=== PATIENT | male | born 1960 | race Caucasian/White ===

== ENCOUNTER 2022-05-03 02:18 | Inpatient (IN) | payer MEDICARE, SELFPAY ==
[2022-05-03 03:05] VITALS: BMI 33.4
[2022-05-03 03:17] VITALS: BP 118/78; PULSE 88; RESP 17; TEMP 36.6; O2SAT 93
[2022-05-03] MEDS: 0.9% Normal Saline 1,000 ML 125 ML IV ×3 (03:29→21:27)
--- NOTE | 2022-05-03 03:32 | HP.PCM_ITS ---
HPI - General General Date of Admission: 05/03/22 Date of Service: 05/03/22 Chief Complaint: Abdominal pain, N/V. HPI Narrative The patient is a 61 y/o M w/ PMHx: CKD stage III unclear subtype (baseline Cr 1.3-1.5 from prior labs reviewed in Clinisync), Anxiety and Depression, Gout, Chronic pain previously following with pain management who presented to the OSH ED [facility] on 05/03/22 with history of nausea, emesis, loose stools i nitially with mild abdominal distention with mainly abdominal soreness initially but upon ED presentation reporting mild epigastric discomfort prompting ED evaluation. Patient specifically reports that he had intractable ongoing persistent emesis from nearly 4:30 in the morning when it all started tube just prior to outside facility ED presentation at 9:30 PM and during this because of the severity of ongoing emesis he did have lightheadedness and dizziness but never suffered any syncopal events. Upon evaluation upon [facility] transition patient reports his pain is 6 out of 10 in severity and attributes this to having the NG tube unhooked. He notes that the pain significantly improved at the outside facility once they placed his NG tube. NG tube being hooked up during evaluation and he notes that even with this initial start he does have immediate improvement in his discomfort. Work-up in the OSH ED included: VS: HR 99, RR 18, 124/83, 94% on RA, T 36.9 Imaging: CT abdomen and pelvis with contrast within mid grade small bowel obstruction without definitive transition point however suspicious of the transition point in the right mid abdomen (Large volume air-fluid level in the stomach, air-fluid level of the proximal small bowel centrally measuring up to 4.2 cm in the mid small bowel which exhibits air-fluid levels also with a lesser degree of distention with no discrete transition point however suspicious for the right hemiabdomen, colon mostly decompressed) UA: elevated specific gravity 1.030, ketone 15 otherwise no obvious evidence of UTI CBC: WBC 15.3, hemoglobin 16.3, platelet 205 with increased neutrophils with left shift CMP: sodium 141, potassium 3.7, chloride 104, CO2 23, BUN/creatinine 25/1.40, glucose 151, AST/ALT 53/105, alk phos 73, total bili 0.6 Lipase: 39 Medications administered: Zofran 4 mg IV, reglan 10 mg IV, morphine 4 mg, 1L NS. Interventions: NGT requested to be placed prior to transfer with follow-up KUB for placement [facility] Medical History Anxiety and depression CKD (chronic kidney disease), stage III Gout History of chronic pain Home Medications ibuprofen 400 mg tablet 800 mg PO QHS PRN Pain 05/03/22 [History Last Taken 05/01/22] Allergy/AdvReac Type Severity Reaction Status Date / Time No Known Allergies Allergy Verified 05/03/22 03:13 Family History (Updated 05/03/22 @ 02:[address] Danna Keene MD) Mother Diabetes Father Diabetes Surgical History History of hip surgery History of total replacement of right shoulder joint Social History (Updated 05/03/22 @ 02:[address] Danna Keene MD) household members: spouse Smoking Status: Never smoker alcohol intake: never substance use type: does not use ROS ROS Narrative Admission Review of Systems: CONSTITUTIONAL: No weight loss, fever, chills, + weakness or fatigue. HEENT: Eyes: No visual loss, blurred vision, double vision or yellow sclerae. Ears, Nose, Throat: No hearing loss, sneezing, congestion, runny nose or sore throat. SKIN: No rash or itching, lesions, wounds. CARDIOVASCULAR: No chest pain, chest pressure or chest discomfort, palpitations, edema, orthopnea, syncopal events. RESPIRATORY: No shortness of breath, cough or sputum, wheezing, hemoptysis. GASTROINTESTINAL: + anorexia, nausea, vomiting, diarrhea, abdominal pain, No melena, BRBPR. GENITOURINARY: No dysuria, frequency, urgency or retention. NEUROLOGICAL: No headache, dizziness, syncope, paralysis, ataxia, numbness or tingling in the extremities, focal weakness, change in bowel or bladder control, seizure. MUSCULOSKELETAL: + muscle, back pain, joint pain or stiffness. HEMATOLOGIC: No anemia, bleeding or bruising. LYMPHATICS: No enlarged nodes. No history of splenectomy. PSYCHIATRIC: + history of depression or anxiety. ENDOCRINOLOGIC: No reports of sweating, cold or heat intolerance. No polyuria or polydipsia. ALLERGIES: No history of asthma, hives, eczema or rhinitis. Vital Signs Vital Signs Vital Signs: 05/03/22 03:17 Temperature 97.9 F Temperature Source Temporal Pulse Rate 88 Respiratory Rate 17 Blood Pressure 118/78 Blood Pressure Mean 91 Blood Pressure Source Monitor Blood Pressure Position Semi-Fowlers Blood Pressure Location Right Arm Pulse Ox 93 Oxygen Delivery Method Room Air Weight Weight: 246 lb 7.629 oz Body Mass Index (BMI) 33.4 Physical Exam Narrative Physical Examination: General: Awake, alert, oriented x 3 and cooperative, laying in the medical surgical bed, fatigued, currently notes pain 6 out of 10 but is improving already with NG tube set up to suction. Skin: Normal color, normal turgor, no icterus, no cyanosis. HEENT: AT/NC, EOMI, PERRLA, moderately dry MM, NG tube in place, no carotid bruits or JVD noted. Lungs: Mildly diminished at bases, proper effort no rales, ronchi or wheezing. Heart: Regular rate and rhythm; no gallop, rub audible. Abdomen: Soft, generalized discomfort with palpation, worse bilateral upper quadrant, does not appear markedly distended, significantly diminished bowel sounds more so in the bilateral upper quadrants, no obvious HSM. Extremities: No cyanosis, clubbing, or edema. Neurological: Patient awake, alert, oriented as noted, cognitive function intact; pupils equally reactive to light and accommodation, cranial nerves II- XII grossly normal, moving all 4 extremities, no focal deficits, strength moderately to severely global decrease secondary to acute presentation. Psychiatric: Affect appears fatigued, currently appears uncomfortable, no acute evidence of depressive or anxiety feelings. Assessment & Plan Assessment/Plan (1) SBO (small bowel obstruction): PLAN: Plan The patient is a 61 y/o M w/ PMHx: CKD stage III unclear subtype (baseline Cr 1.3-1.5 from prior labs reviewed in Clinisync), Anxiety and Depression, Gout, Chronic pain previously following with pain management who presented to the OS ED [facility] on 05/03/22 with history of nausea, emesis, loose stools initially with mild abdominal distention with mainly abdominal soreness initially with ongoing intractable emesis from 4:30 in the morning to 9:30 PM 05/02/2022 prompting outside facility evaluation with SBO noted on CT scan prompting transfer to [facility] on 05/03/22 for further evaluation. #1. Abdominal pain, nausea, emesis w/ SBO: CT abdomen and pelvis with contrast within mid grade small bowel obstruction without definitive transition point however suspicious of the transition point in the right mid abdomen, will admit to medical surgical floor as direct admission from outside facility, maintain on IVFs, continue NGT to suction, strict I&Os, IV pain/anti-emetics PRN, serial KUB as needed to montior bowel function, PPI IV, maintain NPO on bowel rest. General surgery Dr. Malloy consulted, pending. #2. Anxiety and depression: Patient in the past had been on paroxetine and as well as bupropion and Klonopin, he is no longer taking any of these medications, encourage continued outpatient evaluation and follow-up with his primary care physician. #3. Prior history chronic pain syndrome: Patient with significant prior joint issues status post replacement of the right shoulder but prior to this had been on baclofen, meloxicam and morphine SR 15 mg twice daily following with pain management which she is no longer doing and has not taken any of these medications chronically for some time. #4. Chronic Kidney Disease Stage III, unclear subtype: Admission BUN/Cr 25/1.40 at outside facility, baseline renal function per review of clinisync system appears 1.3-1.5, repeat BMP in AM. #5. Gout: Patient is not on any medications but does have underlying history. #6. Hyperglycemia, possibly stress response: Glucose from outside facility noted to be 151, hemoglobin A1c requested to be cautious and if notable for prediabetes or diabetes will transition to Accu-Cheks every 6 hours with insulin sliding scale. #7. DVT prophylaxis: Lovenox. Admission Evaluation Time spent evaluating chart, patient history, patient evaluation, care planning and discussion with specialists: 76 minutes. Charges/Coding Visit Charges Inpatient E&M: 34337 Init Hosp L3
[2022-05-03 04:17] VITALS: BMI 33.3
--- NOTE | 2022-05-03 05:55 | RAD_ITS ---
ACR Level 3 findings have been noted. An addendum which confirms receipt of the report will follow. INDICATION: SBO EXAMINATION/TECHNIQUE: X-RAY - XR Abdomen 1 View COMPARISON: None FINDINGS: BOWEL GAS PATTERN: Multiple dilated air-filled loops of small bowel measuring up to 4.1 cm. NG tube is present with tip in the stomach. FREE AIR: Not assessed on a single supine view. ORGANOMEGALY: Not seen. CALCIFICATIONS: No abnormal calcifications observed. LOWER CHEST: No acute pathology. BONES AND SOFT TISSUES: No acute pathology. Degenerative changes of the visualized spine. RAD/Abdomen Single View (Portable) IMPRESSION: Findings suspicious for small bowel obstruction. Recommend CT abdomen and pelvis with contrast. NG tube is present with tip in the stomach. Electronically Signed: Yoandy Suarez MD at 17:09 EST ,
--- NOTE | 2022-05-03 06:56 | CON.PCM.SX_ITS ---
Assessment & Plan Assessment/Plan (1) SBO (small bowel obstruction): PLAN: This is a 61-year-old male, relatively healthy, who presents from outside hospital with signs and symptoms of possible small bowel obstruction. He has no previous history of small bowel obstructions and no previous surgical history. Despite having symptoms of nausea and vomiting he is having ongoing loose stools. With his elevated white count and reports of nausea with his after eating on Thursday, I am concerned for possible ileus/enteritis as opposed to a true mechanical bowel obstruction. Therefore I have requested submission of enteric pathogen and C. difficile PCR. CD of patient's CT imaging was delivered from outside hospital and I have requested uploaded in PACS. Given his persistent distention and significant aspiration volume via nasogastric tube decompression, I still see utility in performing small bowel follow-through. This will be ordered momentarily. Recommend keeping patient n.p.o. with maintenance IV fluids and monitoring of electrolytes for the interim. ?N.p.o. with NG tube to low intermittent wall suction until beginning of ? Small bowel follow-through ? Continue maintenance IV fluids with daily monitoring of electrolytes ? Follow-up stool sample with C. difficile and enteric pathogen HPI Consult Data Date of Consult: 05/03/22 HPI Narrative Reason for Consultation: Concern for small bowel obstruction HPI Narrative: BRAYAN HOLLIDAY, is a 61 M who presents to [facility] on direct transfer from [facility]. He presented there yesterday with complaints of, nausea, vomiting, and loose stools. He states that he for started with symptoms the day prior at about 4:30 in the morning. He denies any previous similar episodes. He states that he had a dinner of chicken and dessert with pie the evening before that his also consumed. He reports that she did have some nausea, but no vomiting after this event. In the ER at the outside hospital, patient was noted to have a leukocytosis with left shift and CT imaging of the abdomen and pelvis showed dilated small bowel with a maximal dimension of 4.2 cm, but no obvious transition point. Mr. Holliday has no history of previous abdominal surgery. He notes a past history of chronic opiate use for chronic pain, but states that he has not had any such medication for quite a while. At the conclusion of our visit, he reports that he feels as though he has to defecate again. PFSH Medical History Anxiety and depression CKD (chronic kidney disease), stage III Gout History of chronic pain Home Medications ibuprofen 400 mg tablet 800 mg PO QHS PRN Pain 05/03/22 [History Last Taken 05/01/22] Allergy/AdvReac Type Severity Reaction Status Date / Time No Known Allergies Allergy Verified 05/03/22 03:13 Family History (Updated 05/03/22 @ 02:[address] Danna Keene MD) Mother Diabetes Father Diabetes Surgical History History of hip surgery History of total replacement of right shoulder joint Social History (Updated 05/03/22 @ 02:[address] Danna Keene MD) household members: spouse Smoking Status: Never smoker alcohol intake: never substance use type: does not use Physical Exam Const alert Constitutional Narrative: Mild distress from abdominal discomfort, cooperative and appropriate with questioning GI GI Narrative: Mildly distended, soft, tender to palpation in the bilateral upper abdominal quadrants with left greater than right. Nasogastric tube in place with bilious output and volume of 650 mL Lab / Micro Data Result Diagrams: 05/03/22 05:28 05/03/22 05:28 Charges/Coding Visit Charges Inpatient E&M: 59228 Init Hosp L2
[2022-05-03 07:06] LABS: Absolute Lymphocyte Count 0.21 X10^3/uL (0.83-4.51); Absolute Neutrophil Count 5.2 X10^3/uL (2.0-7.7); Basophil# 0.02 X10^3/uL; Basophil% 0.3 % (0-1); Hematocrit 46.5 % (40-54); Hemoglobin 15.3 g/dL (13.0-16.5); Lymphocyte # 0.21 X10^3/ul (0.83-4.51); Lymphocyte % 3.5 % (19-41); Mean Corp Hgb Conc 32.9 g/dL (32-36); Mean Corpuscular Volume 91.2 fL (80-94); Mean Platelet Vol. 10.7 fl (6.2-12.0); Monocyte% 9.9 % (0-10); NRBC Flagged by Analyzer 0 % (0-5); Neutrophil # 5.24 X10^3/uL (2.7-7.7); Neutrophil % 86.1 % (47-70); POSITIVE DIFFERENTIAL YES; Platelet Count 195 K/mm3 (150-450); RBC Distribution Width CV 14.6 % (11.6-14.6); RBC Distribution Width SD 48.7 fl (35.1-43.9); White Blood Count 6.1 K/mm3 (4.4-11.0)
[2022-05-03 07:15] VITALS: O2SAT 97
[2022-05-03 07:15] LABS: Differential Indicated SCAN CRITERIA MET
[2022-05-03 07:45] LABS: ALB/GLOB Ratio 1.2 RATIO (0.9-2.4); AST(SGOT) 37 U/L (15-37); Alanine Aminotransfer ALT/SGPT 85 U/L (16-61); Albumin, Serum 3.7 g/dL (3.2-5.0); Alkaline Phosphatase 54 U/L (45-117); Anion Gap 8 (5-15); BUN 22 mg/dL (7-18); BUN/Creat Ratio 19.3 RATIO (10-20); Calcium,Total 8.3 mg/dL (8.5-10.1); Chloride 111 mmol/L (98-107); Creatinine, Serum 1.14 mg/dL (0.70-1.30); EST Glomerular Filtration Rate 69 mL/min (>60); Est Glom Filt Rate - Afr Amer 84 mL/min (>60); Estimated Creatinine Clearance 73.74 ml/min; Globulin 3.2 g/dL (2.2-4.2); Glucose 142 mg/dL (74-106); Protein, Total 6.9 g/dL (6.4-8.2); Sodium Level 142 mmol/L (136-145)
--- NOTE | 2022-05-03 07:45 | PN.HOSP_ITS ---
Reason for Visit Reason for Visit: Diagnoses Unspecified intestinal obstruction, unspecified as to partial versus complete o bstruction (05/03/22) Subjective Subjective Abdomen feeling better. Having flatus and did have bowel movements. Objective Data Objective Data Vital Signs: Vital Signs Temp Pulse Resp BP Pulse Ox O2 Del Method 36.6 C 88 17 118/78 97 Room Air 05/03/22 03:17 05/03/22 03:17 05/03/22 03:17 05/03/22 03:17 05/03/22 07:15 05/03/22 07:15 Oxygen Delivery Method Room Air Weight: 111.5 kg Body Mass Index (BMI) 33.3 Intake & Output: Intake and Output for Last 24 Hours 05/01/22 05/02/22 05/03/22 23:59 23:59 23:59 Intake Total 235 / 235 Output Total 150 / 150 Balance 85 / 85 Lab / Micro Data Result Diagrams: 05/03/22 05:28 05/03/22 05:28 Labs: Laboratory Results - last 24 hr 05/03/22 05:28: WBC 6.1, RBC 5.10, Hgb 15.3, Hct 46.5, MCV 91.2, MCH 30.0, MCHC 32.9, RDW Std Deviation 48.7 H, RDW Coeff of Vin 14.6, Plt Count 195, MPV 10.7, Immature Gran % (Auto) 0.200, Neut % (Auto) 86.1 H, Lymph % (Auto) 3.5 L, [place] % (Auto) 9.9, Eos % (Auto) 0.0, Baso % (Auto) 0.3, Absolute Neuts (auto) 5.2, Absolute Lymphs (auto) 0.21 L, Nucleated RBC % 0 05/03/22 05:28: Sodium 142, Potassium 4.0, Chloride 111 H, Carbon Dioxide 23.0, Anion Gap 8, BUN 22 H, Creatinine 1.14, Estim Creat Clear Calc 73.74, Est GFR (MDRD) Af Amer 84, Est GFR (MDRD) Non-Af 69, BUN/Creatinine Ratio 19.3, Glucose 142 H, Calcium 8.3 L, Total Bilirubin 0.50, AST 37, ALT 85 H, Alkaline Phosphatase 54, Total Protein 6.9, Albumin 3.7, Globulin 3.2, Albumin/Globulin Ratio 1.2 Physical Exam Const alert and no apparent distress HEENT head/scalp atraumatic Resp normal respiratory effort, no retractions, no use of accessory muscles and clear to auscultation bilaterally Cardio regular rate, regular rhythm, S1 normal heart sound and S2 normal heart sound GI normal to inspection, nondistended, normoactive bowel sounds, soft to palpation, non-tender and non-distended Extremity normal to inspection Assessment & Plan Assessment/Plan (1) SBO (small bowel obstruction): PLAN: Clinically improving Small obstruction versus ileus CT abdomen and pelvis with contrast within mid grade small bowel obstruction without definitive transition point however suspicious of the transition point in the right mid abdomen, will admit to medical surgical floor as direct admission from outside facility, maintain on IVFs, continue NGT to suction, strict I&Os, IV pain/anti-emetics PRN, serial KUB as needed to montior bowel function, PPI IV, maintain NPO on bowel rest. General surgery Dr. Malloy consulted, pending. Small bowel follow-through performed PLAN: Plan Chronic conditions: * Anxiety and depression: Patient in the past had been on paroxetine and as well as bupropion and Klonopin, he is no longer taking any of these medications, encourage continued outpatient evaluation and follow-up with his primary care physician. * Prior history chronic pain syndrome: Patient with significant prior joint issues status post replacement of the right shoulder but prior to this had been on baclofen, meloxicam and morphine SR 15 mg twice daily following with pain management which she is no longer doing and has not taken any of these medications chronically for some time. * Chronic Kidney Disease Stage III, unclear subtype: Admission BUN/Cr 25/1.40 at outside facility, baseline renal function per review of clinisync system appears 1.3-1.5, repeat BMP in AM. * Gout: Patient is not on any medications but does have underlying history. * Hyperglycemia, possibly stress response: Glucose from outside facility noted to be 151, hemoglobin A1c requested to be cautious and if notable for prediabetes or diabetes will transition to Accu-Cheks every 6 hours with insulin sliding scale. DVT prophylaxis: Lovenox. Charges/Coding Visit Charges Inpatient E&M: 63028 Subs Hosp L2
[2022-05-03 07:54] LABS: Platelet Estimate ADEQUATE (ADEQ); Polychromasia RARE
[2022-05-03 08:49] LABS: Hemoglobin A1c 5.7 % (3.8-5.6)
[2022-05-03 08:50] VITALS: BP 139/82; PULSE 88; RESP 16; TEMP 36.8; O2SAT 94
--- NOTE | 2022-05-03 11:30 | RAD_ITS ---
INDICATION: f/u SBO -- Films: Immediately post GG, 6 h, 12 h, and 24h EXAMINATION/TECHNIQUE: Gastrografin oral contrast was administered orally via NG tube to the patient. # of Fluoroscopic Images: 6 COMPARISON: Abdominal radiograph same date FINDINGS: There is interval resolution of small bowel obstruction. Small bowel transit time is within normal limits. The mucosal pattern is unremarkable. Contrast is seen up to the rectum after 5 1/2 hours. RAD/Small Bowel Series Only IMPRESSION: Interval resolution of small bowel obstruction. Electronically Signed: Yoandy Suarez MD at 17:41 EST ,
[2022-05-03] MEDS: 0.9% Saline Lock 10 ML Syringe IV (13:20)
[2022-05-03] MEDS: Enoxaparin 40 MG/0.4 ML Syringe SC (13:20)
[2022-05-03 14:52] VITALS: BP 114/70; PULSE 79; RESP 18; TEMP 36.7; O2SAT 94
--- NOTE | 2022-05-03 16:29 | CASEMGMT ---
RN?CM?BREAKER LAYER?CM?to room to meet with patient for initial transition planning/care coordination?assessment.?RN?CM?introduced self and role at [facility].? Pt voices understanding and consents to?assessment?at this time.? Pt resting in bed in no distress at this time.? Pt is A/O at this time and answers all questions appropriately.?? Care providers, pharmacy, and demographics verified/updated at this time. PCP: Dr Jones Ibarra Specialists: none [facility]erred [facility]acy[facility] Insurance: [employer] Prescription Benefit:?Yes Living Will/HPOA:?Has both LW and HCPOA, who is his , Amanda LNOK: , Amanda Living Arrangements: Lives w/ in one-story home w/no steps to enter. Independent. Transportation:?Pt states drives self and states no transportation concerns at this time.? also drives. DME: ? Denies using any DME and denies needs.? HHC/SNF: No hx of either and no needs identified. Pt wishes to return home and states has no concerns with going home at time of discharge.? CM?to follow for any discharge planning/needs.? Pt voices no concerns/needs at this time.? Advised pt to ask for?CM?if any questions/concerns/needs arise.? Voices understanding. PLAN:??home Trisha HASSANN?RN?CM
[2022-05-03 17:41] VITALS: BP 146/92; PULSE 80; RESP 18; TEMP 36.7; O2SAT 97
[2022-05-03] MEDS: Ondansetron 4 MG/2 ML Vial IV (21:28)
[2022-05-03 21:36] VITALS: BP 126/82; PULSE 75; RESP 16; TEMP 37.1; O2SAT 98
[2022-05-04 02:38] VITALS: BP 123/86; PULSE 72; RESP 18; TEMP 37; O2SAT 95
[2022-05-04] MEDS: 0.9% Normal Saline 1,000 ML 125 ML IV (04:44)
[2022-05-04 05:38] VITALS: BMI 33.2
--- NOTE | 2022-05-04 07:17 | PN.HOSP_ITS ---
Reason for Visit Reason for Visit: Diagnoses Unspecified intestinal obstruction, unspecified as to partial versus complete o bstruction (05/03/22) Subjective Subjective Feeling better. Objective Data Objective Data Vital Signs: Vital Signs Temp Pulse Resp BP Pulse Ox O2 Del Method 37.0 C 72 18 123/86 H 95 Room Air 05/04/22 02:38 05/04/22 02:38 05/04/22 02:38 05/04/22 02:38 05/04/22 02:38 05/04/22 02:38 Oxygen Delivery Method Room Air Weight: 111 kg Body Mass Index (BMI) 33.2 Intake & Output: Intake and Output for Last 24 Hours 05/02/22 05/03/22 05/04/22 23:59 23:59 23:59 Intake Total 2772.92 / 2772.92 910.42 / 910.42 Output Total 150 / 150 Balance 2622.92 / 2622.92 910.42 / 910.42 Lab / Micro Data Result Diagrams: 05/03/22 05:28 05/03/22 05:28 Labs: Laboratory Results - last 24 hr 05/03/22 05:28: Platelet Estimate ADEQUATE, Polychromasia RARE 05/03/22 05:28: Sodium 142, Potassium 4.0, Chloride 111 H, Carbon Dioxide 23.0, Anion Gap 8, BUN 22 H, Creatinine 1.14, Estim Creat Clear Calc 73.74, Est GFR (MDRD) Af Amer 84, Est GFR (MDRD) Non-Af 69, BUN/Creatinine Ratio 19.3, Glucose 142 H, Calcium 8.3 L, Total Bilirubin 0.50, AST 37, ALT 85 H, Alkaline Phosphatase 54, Total Protein 6.9, Albumin 3.7, Globulin 3.2, Albumin/Globulin Ratio 1.2 05/03/22 05:28: Hemoglobin A1c 5.7 H Micro: Microbiology 05/03/22 08:30 Stool C. difficile DNA Amplification - Final 05/03/22 08:29 Stool Enteric Bacteriology - Final Norovirus Radiography Diagnostic Testing: Radiology Impression KUB X-Ray 05/03/22 05:55 IMPRESSION: Findings suspicious for small bowel obstruction. Recommend CT abdomen and pelvis with contrast. NG tube is present with tip in the stomach. Electronically Signed: Yoandy Suarez MD at 17:09 EST , ADDENDUM: 05/03/22 1730 IMPRESSION: Findings suspicious for small bowel obstruction. Recommend CT abdomen and pelvis with contrast. NG tube is present with tip in the stomach. N.B. : Fior Duran RN, confirmed on 05/03/2022 17:23:34 (ET) that the healthcare facility has received the radiology report. Electronically Signed: Yoandy Suarez MD at 17:09 EST , Small Bowel X-Ray 05/03/22 11:30 IMPRESSION: Interval resolution of small bowel obstruction. Electronically Signed: Yoandy Suarez MD at 17:41 EST , Physical Exam Const alert and no apparent distress Resp normal respiratory effort and no retractions Cardio regular rate, regular rhythm, S1 normal heart sound and S2 normal heart sound GI normal to inspection, nondistended, normoactive bowel sounds, soft to palpation, non-tender and non-distended Assessment & Plan Assessment/Plan (1) SBO (small bowel obstruction): PLAN: Clinically improving Small obstruction versus ileus CT abdomen and pelvis with contrast within mid grade small bowel obstruction without definitive transition point however suspicious of the transition point in the right mid abdomen, will admit to medical surgical floor as direct admission from outside facility, maintain on IVFs, continue NGT to suction, strict I&Os, IV pain/anti-emetics PRN, serial KUB as needed to montior bowel function, PPI IV, maintain NPO on bowel rest. General surgery Dr. Malloy consulted, pending. Small bowel follow-through negative +Norovirus Andres diet and if tolerates then discharged home. Apparently the patient's is also sick presumably with the same norovirus. PLAN: Plan Chronic conditions: * Anxiety and depression: Patient in the past had been on paroxetine and as well as bupropion and Klonopin, he is no longer taking any of these medications, encourage continued outpatient evaluation and follow-up with his primary care physician. * Prior history chronic pain syndrome: Patient with significant prior joint issues status post replacement of the right shoulder but prior to this had been on baclofen, meloxicam and morphine SR 15 mg twice daily following with pain management which she is no longer doing and has not taken any of these medications chronically for some time. * Chronic Kidney Disease Stage III, unclear subtype: Admission BUN/Cr 25/1.40 at outside facility, baseline renal function per review of clinisync system appears 1.3-1.5, repeat BMP in AM. * Gout: Patient is not on any medications but does have underlying history. * Hyperglycemia, possibly stress response: Glucose from outside facility noted to be 151, hemoglobin A1c requested to be cautious and if notable for prediabetes or diabetes will transition to Accu-Cheks every 6 hours with insulin sliding scale. DVT prophylaxis: Lovenox. Charges/Coding Visit Charges Inpatient E&M: 22906 Subs Hosp L2
--- NOTE | 2022-05-04 08:25 | PCM.PN.SRG ---
Subjective Subjective Seen and examined during AM rounds. He was able to have his nasogastric tube removed after a small bowel series showed contrast opacifying his colon into his rectum. He denies any further nausea and reports even that his diarrhea has cleared. He expresses an appetite this morning. Objective Data Objective Data Vital Signs: Vital Signs Temp Pulse Resp BP Pulse Ox O2 Del Method 98.6 F 72 18 123/86 H 95 Room Air 05/04/22 02:38 05/04/22 02:38 05/04/22 02:38 05/04/22 02:38 05/04/22 02:38 05/04/22 02:38 Oxygen Delivery Method Room Air Weight: 244 lb 11.41 oz Body Mass Index (BMI) 33.2 Intake & Output: Intake and Output for Last 24 Hours 05/02/22 05/03/22 05/04/22 23:59 23:59 23:59 Intake Total 2772.92 / 2772.92 910.42 / 910.42 Output Total 150 / 150 Balance 2622.92 / 2622.92 910.42 / 910.42 Lab / Micro Data Result Diagrams: 05/03/22 05:28 05/03/22 05:28 Labs: Laboratory Results - last 24 hr 05/03/22 05:28: Hemoglobin A1c 5.7 H Micro: Microbiology 05/03/22 08:30 Stool C. difficile DNA Amplification - Final 05/03/22 08:29 Stool Enteric Bacteriology - Final Norovirus Radiography Diagnostic Testing: Radiology Impression KUB X-Ray 05/03/22 05:55 IMPRESSION: Findings suspicious for small bowel obstruction. Recommend CT abdomen and pelvis with contrast. NG tube is present with tip in the stomach. Electronically Signed: Yoandy Suarez MD at 17:09 EST , ADDENDUM: 05/03/22 2987 IMPRESSION: Findings suspicious for small bowel obstruction. Recommend CT abdomen and pelvis with contrast. NG tube is present with tip in the stomach. N.B. : Fior Duran RN, confirmed on 05/03/2022 17:23:34 (ET) that the healthcare facility has received the radiology report. Electronically Signed: Yoandy Suarez MD at 17:09 EST , Small Bowel X-Ray 05/03/22 11:30 IMPRESSION: Interval resolution of small bowel obstruction. Electronically Signed: Yoandy Suarez MD at 17:41 EST , Physical Exam Const oriented x3 and no apparent distress Resp normal respiratory effort GI GI Narrative: Nondistended, soft, nontender to palpation x4 quadrants Assessment & Plan Assessment/Plan (1) SBO (small bowel obstruction): PLAN: This is a 61-year-old male, relatively healthy, who presents from outside hospital with signs and symptoms of possible small bowel obstruction. He has no previous history of small bowel obstructions and no previous surgical history. Despite having symptoms of nausea and vomiting he was also experiencing loose stools. With his elevated white count and reports of nausea with his after eating on Thursday, I was concerned more for ileus/enteritis and, indeed, an enteric pathogen panel returned positive for norovirus yesterday. He also demonstrated complete transit of contrast through his bowel during a small bowel series in 5-1/2 hours so his nasogastric tube was removed. He reports feeling much better today. I would like to begin a diet and advance as tolerated. ?Okay to advance to a diet today. Monitor for tolerance. If patient is able to tolerate a couple of meals, would clear patient for discharge to home with instructions to prioritize hydration and limit interpersonal contact until asymptomatic. Charges/Coding Visit Charges Inpatient E&M: 98349 Subs Hosp L2
[2022-05-04 09:29] VITALS: BP 128/82; PULSE 66; RESP 16; TEMP 37; O2SAT 97
[2022-05-04] MEDS: Enoxaparin 40 MG/0.4 ML Syringe SC (09:33)
--- NOTE | 2022-05-04 14:12 | DCINST_ITS ---
Discharge Instructions Diet Discharge Diet: No restrictions Follow Up Care Test Results: Test results from this visit will be discussed in further detail at your follow- up appointment, if applicable. Discharge Plan Admission Admit Date/Time: 05/03/22 02:18 Primary Reason for Your Visit: small bowel obstruction. Attending Provider: Arash Sales Primary Care Provider: Jones Ibarra Consulting Providers: Zackary Malloy ; Danna Keene Discharge Orders/Prescriptions Prescriptions: New ondansetron 8 mg tablet,disintegrating 8 mg PO Q8H 2 Days Qty: 6 0RF Rx Instructions: start 8 hr after first/pre-chemo dose Continued ibuprofen 400 mg Tablet 800 mg PO QHS PRN (Reason: Pain) Referrals / Follow Up: Jones Ibarra MD [Primary Care Provider] - Within 2 Weeks Disposition Disposition (needs filled in before D/C Order can be placed): Home, Self Care
--- NOTE | 2022-05-04 14:15 | DS.PCM_ITS ---
Providers Date of Admission: 05/03/22 Primary Care Physician: Dr. Jones Ibarra MD Consultations 05/03/22 02:16 Consult: General Surgery Routine Consulting Provider: Zackary Malloy Reason for Consult: SBO EMERGENT Consult: No MD Notified: Yes Date Notified: 05/03/22 Time Notified: 02:17 Method of Notification: Text Reason For Visit: SBO Diagnosis Discharge Diagnosis (1) SBO (small bowel obstruction): Status: Acute Code(s): K56.609 - Unspecified intestinal obstruction, unspecified as to partial versus complete obstruction Plan: Clinically improving Small obstruction versus ileus CT abdomen and pelvis with contrast within mid grade small bowel obstruction without definitive transition point however suspicious of the transition point in the right mid abdomen, will admit to medical surgical floor as direct admission from outside facility, maintain on IVFs, continue NGT to suction, strict I&Os, IV pain/anti-emetics PRN, serial KUB as needed to montior bowel function, PPI IV, maintain NPO on bowel rest. General surgery Dr. Malloy consulted, pending. Small bowel follow-through negative +Norovirus Andres diet and if tolerates then discharged home. Apparently the patient's is also sick presumably with the same norovirus. Plan Chronic conditions: * Anxiety and depression: Patient in the past had been on paroxetine and as well as bupropion and Klonopin, he is no longer taking any of these medications, encourage continued outpatient evaluation and follow-up with his primary care physician. * Prior history chronic pain syndrome: Patient with significant prior joint issues status post replacement of the right shoulder but prior to this had been on baclofen, meloxicam and morphine SR 15 mg twice daily following with pain management which she is no longer doing and has not taken any of these medications chronically for some time. * Chronic Kidney Disease Stage III, unclear subtype: Admission BUN/Cr 25/1.40 at outside facility, baseline renal function per review of [employer] system chica ears 1.3-1.5, repeat BMP in AM. * Gout: Patient is not on any medications but does have underlying history. * Hyperglycemia, possibly stress response: Glucose from outside facility noted to be 151, hemoglobin A1c requested to be cautious and if notable for prediabetes or diabetes will transition to Accu-Cheks every 6 hours with insulin sliding scale. DVT prophylaxis: Lovenox. Medications at Discharge Home Medications ibuprofen 400 mg tablet 800 mg PO QHS PRN Pain 05/03/22 ondansetron 8 mg disintegrating tablet 8 mg PO Q8H 48 hours #6 tabs 05/04/22 Hospital Course Operations None Summary of Care Provided Minutes Spent on Discharge: 26 Weight / BMI Weight Weight: 111 kg Body Mass Index (BMI) 33.2 ABG / Lab / Microbiology Data Result Diagrams: 05/03/22 05:28 05/03/22 05:28 Microbiology: Microbiology 05/03/22 08:30 Stool C. difficile DNA Amplification - Final 05/03/22 08:29 Stool Enteric Bacteriology - Final Norovirus Radiography Diagnostic Testing: Radiology Impression KUB X-Ray 05/03/22 05:55 IMPRESSION: Findings suspicious for small bowel obstruction. Recommend CT abdomen and pelvis with contrast. NG tube is present with tip in the stomach. Electronically Signed: Yoandy Suarez MD at 17:09 EST , ADDENDUM: 05/03/22 1730 IMPRESSION: Findings suspicious for small bowel obstruction. Recommend CT abdomen and pelvis with contrast. NG tube is present with tip in the stomach. N.B. : Fior Duran RN, confirmed on 05/03/2022 17:23:34 (ET) that the healthcare facility has received the radiology report. Electronically Signed: Yoandy Suarez MD at 17:09 EST , Small Bowel X-Ray 05/03/22 11:30 IMPRESSION: Interval resolution of small bowel obstruction. Electronically Signed: Yoandy Suarez MD at 17:41 EST , D/C Instructions Discharge Diet: No restrictions Meaningful Use Info Meaningful Use Diagnoses (Choose all that apply): None applicable Discharge Plan Admission Admit Date/Time: 05/03/22 02:18 Primary Reason for Your Visit: small bowel obstruction. Attending Provider: Arash Sales Primary Care Provider: Jones Ibarra Consulting Providers: Zackary Malloy ; Danna Keene Discharge Orders/Prescriptions Prescriptions: New ondansetron 8 mg tablet,disintegrating 8 mg PO Q8H 2 Days Qty: 6 0RF Rx Instructions: start 8 hr after first/pre-chemo dose Continued ibuprofen 400 mg Tablet 800 mg PO QHS PRN (Reason: Pain) Referrals / Follow Up: Jones Ibarra MD [Primary Care Provider] - Within 2 Weeks Disposition Disposition (needs filled in before D/C Order can be placed): Home, Self Care Charges/Coding Visit Charges Inpatient E&M: 54127 Disch Hosp
== END 2022-05-04 16:35 | disposition home or self-care (01) | DRG 392 ==
PROVIDERS: Admitting Provider Family Medicine; PCP Family Medicine
DX: A08.11 Acute gastroenteropathy due to Norwalk agent (principal); G89.4 Chronic pain syndrome; N18.30 Chronic kidney disease, stage 3 unspecified; R73.9 Hyperglycemia, unspecified; Z79.1 Long term (current) use of non-steroidal anti-inflammatories (NSAID)
CPT/HCPCS: 36415; 74018; 74250; 80053; 83036; 85025; 87493; 87506; 94668; 97802; 99252; J7030; A4216; G0463; J2405